=== PATIENT | female | born 1950 | race Caucasian/White ===

== ENCOUNTER 2016-12-20 05:33 | Day surgery (SDC) | payer MEDICARE, OTHER ==
[~2016-12-20 05:33] MED LIST: ACET500CAP PO; DEMA100 PO; EXELON1 EACH TOP; KLONO5 PO; LEXAPRO20 PO; LIPITOR20 PO; MOBIC15 MG PO; NAMENXR28 PO; NORV5 PO; PERCOCET 10/3251 TAB PO; PR25 PO; PROTONIX PO; REQUIP1 PO; RISPERDAL0.25 MG PO; STIOLTO RESPIMAT4 GM INH; ZOFRAN8 PO
== END 2016-12-20 08:14 | disposition home or self-care (01) ==
LOC: SDC 05:33
PROVIDERS: Orthopaedic Surgery
PROC: 3E0S3BZ Introduction of Anesthetic Agent into Epidural Space, Percutaneous Approach (ICD-10-PCS; 2016-12-20)
PROC: 3E0S33Z Introduction of Anti-inflammatory into Epidural Space, Percutaneous Approach (ICD-10-PCS; principal; 2016-12-20 07:00)
DX: M54.16 Radiculopathy, lumbar region (principal); G25.81 Restless legs syndrome; E78.00 Pure hypercholesterolemia, unspecified; J44.9 Chronic obstructive pulmonary disease, unspecified; K21.9 Gastro-esophageal reflux disease without esophagitis; F41.9 Anxiety disorder, unspecified; F32.9 Major depressive disorder, single episode, unspecified; Z88.8 Allergy status to other drugs, medicaments and biological substances; Z88.5 Allergy status to narcotic agent; Z79.899 Other long term (current) drug therapy; Z88.0 Allergy status to penicillin; Z90.710 Acquired absence of both cervix and uterus; Z98.41 Cataract extraction status, right eye; Z98.42 Cataract extraction status, left eye; Z96.641 Presence of right artificial hip joint; Z96.651 Presence of right artificial knee joint; Z98.890 Other specified postprocedural states
CPT/HCPCS: J2250; J3010; Q9967